=== PATIENT | female | born 1975 | race Caucasian/White ===

== ENCOUNTER 2016-07-22 09:58 | Emergency (ER) | payer OTHER ==
[~2016-07-22] VITALS: Ht 157.5 cm; Wt 90.9 kg
[~2016-07-22 09:58] MED LIST: AMIT10TA6 PO; IBUP800T28 PO; OMEP-113 PO
[2016-07-22 10:23] VITALS: BP 141/85; PULSE 69; RESP 20; O2SAT 97
--- NOTE | 2016-07-22 10:45 | ED.REPORT ---
HPI-Abd Pain F 40 and Over Date of Service Jul 22, 2016 ED Provider: Francis Kim MD 41 year old female with a history of mild erosive gastropathy and GERD presents to the ER accompanied by her son complaining of acute on chronic LLQ abdominal pain, worsening several days ago. Currently she rates the pain 6/10 in severity. She states that symptoms have been present for several years intermittently, and had resolved until several months ago. Symptoms are described as "constant morning sickness". Pain is exacerbated by eating. Associated symptoms include nausea, and diarrhea x5 today. Patient denies vomiting. Followed by Dr. Vitale, GI. Nursing Notes Stated Complaint: STOMACH PAINS Chief Complaint: Female Abdominal Pain Nursing Notes Reviewed: Yes ([employer] (formerly [employer]) not reconciled) Allergies: Coded Allergies: No Known Drug Allergies (Verified Allergy, Unknown, 03/08/14) Scheduled Amitriptyline (Amitriptyline) 10 Mg Tablet 10 MG PO HS Omeprazole Magnesium (Omeprazole) 20 Mg Capsule.dr 20 MG PO DAILY Scheduled PRN Ibuprofen (Ibuprofen) 800 Mg Tablet 800 MG PO QID PRN PRN For Pain oxyCODONE-Acetaminophen 5-325 mg (oxyCODONE-Acetaminophen 5-325 mg) 1 Each Tablet 1-2 TAB PO TID PRN PRN For Pain General Time Seen by MD: 10:40 Chief Complaint Abdominal pain (LLQ) Hx Obtained From: Patient Arrived By: Walk-in Sudden in Onset?: No Onset Occurred: More than a week ago... ("years") Symptom Duration: Intermittent Location: : Abdomen lower: LLQ Quality: Painful Severity: Current: Mild Severity: Maximum: Moderate Associated with: Reports: Diarrhea, Nausea, Denies: Vomiting Pertinent Negative: Pt denies other symptoms Similar Sx Previous: Yes Past Medical History Past Medical History Notes: ARNEL Vitale Past Medical History Reports: GERD Past Surgical History EGD and colonoscopy for diffuse multifocal abdominal pain by Dr. Vitale March 2014 with mild erosive gastropathy, otherwise normal EGD and colonoscopy Reports: Hysterectomy Smoking History Never Smoker Social History Alcohol Use: "Social" Drug Use: Denies drug use Other Social History: Good social support Ambulatory Status Independent Review of Systems Constitutional: Denies: Chills, Fever Respiratory: Denies: Non-productive cough, Shortness of breath Cardiovascular: Denies: Chest pain GI: Reports: Abdominal pain, Diarrhea, Nausea, Denies: Constipation, Hematemesis, Hematochezia, Vomiting Female: Denies: Dysuria, Flank pain Complete sys rev & neg: except as marked. Physical Exam Vital Signs Vital Signs (First) Date Time Temp Pulse Resp B/P Pulse Ox O2 Delivery O2 Flow Rate FiO2 07/22/16 10:23 36.8 69 20 141/85 97 Room Air Initial VS: Reviewed, Vital signs normal Head / Eyes: Atraumatic, Normocephalic ENT: Mucous membranes moist, Conjunctiva normal, No scleral icterus Neck: Supple, Non-tender, Full range of motion Extremities: Vascular intact, Neuro intact, No swelling, No tenderness Skin: Warm, Dry, No cyanosis Neurologic: Alert, Oriented, Nonfocal General/Constitutional: Awake, Alert, Well developed, Well nourished Appearance / Presentation: Positive: Obese Respiratory / Chest: Breath sounds NL, Breath sounds = bilat, No respiratory distress, No rales, No rhonchi, No wheezing, No stridor Cardiovascular: Heart rate NL, Regular rhythm, Heart sounds NL, Peripheral circulation NL Abdomen: No guarding, No rebound, No distention Tenderness/Guarding/Rebound: Positive: Tender LUQ... (Mild), Tender flank L Interpretation & Diagnostics Lab Results Interpretation Result Diagram: 07/22/16 1020 07/22/16 1020 Test 07/22/16 10:20 White Blood Count 5.7th/mm3 (3.8-10.1) Red Blood Count 4.72mil/mm3 (3.90-5.20) Hemoglobin 14.6g/dL (12.0-15.6) Hematocrit 41.2% (35.0-46.0) Mean Corpuscular Volume 87.3fL (81-100) Mean Corpuscular Hemoglobin 30.9pg (27.0-35.0) Mean Corpuscular Hemoglobin Concent 35.4% (32.0-37.0) Red Cell Distribution Width 12.9% (12.3-15.4) Platelet Count 240bil/L (150-400) Neutrophils (%) (Auto) 39.8% (40-74) Lymphocytes (%) (Auto) 51.5% (14-46) Monocytes (%) (Auto) 6.4% (4-12) Eosinophils (%) (Auto) 1.9% (0-5) Basophils (%) (Auto) 0.4% (0-3) Urine Color Yellow (YELLOW) Urine Appearance Clear (CLEAR,HAZY) Urine pH 6.5 (5.0-8.0) Urine Specific [place] 1.020 (1.003-1.035) Urine Protein Negativemg/dL (NEG,TRACE) Urine Glucose (UA) Negativemg/dL (NEGATIVE) Urine Ketones Negativemg/dL (NEGATIVE) Urine Occult Blood Small (NEGATIVE) Urine Nitrite Negative (NEGATIVE) Urine Bilirubin Negative (NEGATIVE) Urine Urobilinogen Normalmg/dL (NORMAL) Urine Leukocyte Esterase Negative (NEGATIVE) Urine RBC 0-2/hpf (0-2) Urine WBC 0-5/hpf (0-5) Urine Epithelial Cells Occasional/hpf (NONE-MOD) Urine Crystals None seen (NONE SEEN) Urine Bacteria Moderate/hpf (NONE-FEW) Urine Hyaline Casts None/lpf (NONE) Urine Granular Casts None seen (NONE SEEN) Urine Waxy Casts None seen (NONE SEEN) Urine Red Blood Cell Casts None seen (NONE SEEN) Urine White Blood Cell Casts None seen (NONE SEEN) Urine Mucus Present (None Seen) Urine Trichomonas None seen (NONE SEEN) Urine Yeast None (NONE SEEN) Urinalysis Comment None Urine Culture Reflexed Indicated Sodium Level 138mEq/L (134-144) Potassium Level 4.3mEq/L (3.5-5.2) Chloride Level 105mEq/L (97-108) Carbon Dioxide Level 23mmol/L (18-29) Blood Urea Nitrogen 11mg/dL (6-24) Creatinine 0.55mg/dL (0.57-1.00) Estimat Glomerular Filtration Rate 174mL/min (>59) Glucose Level 98mg/dL (60-99) Calcium Level 8.8mg/dL (8.5-10.1) Magnesium Level 1.8mg/dL (1.6-2.6) Total Bilirubin 0.4mg/dL (0.0-1.2) Aspartate Amino Transf (AST/SGOT) 15U/L (0-50) Alanine Aminotransferase (ALT/SGPT) 14U/L (0-32) Alkaline Phosphatase 38U/L (25-150) Total Protein 6.9g/dL (6.4-8.4) Albumin 4.1g/dL (3.4-5.0) Lipase 46U/L (13-60) Hold Ramires Top Tube Received (Received) Lab Results Interpretation: CBC normal CMP normal CT Abd / Pelvis Interpretation IMPRESSION: 1. No acute process; no explanation for left pete-abdominal pain. 2. Normal appendix. 3. No change in left adrenal nodule, consistent with benign etiology. 4. New indeterminate, ill-defined low-density focus within the right hepatic lobe, which could be further assessed with nonemergent liver protocol MRI, if clinically indicated. Dictated by: Liu Kruger M.D. on 07/22/2016 at 12:57 Approved by: Liu Kruger M.D. on 07/22/2016 at 12:57 Study type: Abdominal CT IV contrast, Abdom CT oral contrast Interpretation / Wet Read by: Interpret - Radiologist Re-Eval/Medical Decision Med Decision/Clinical Course This is a 41-year-old females had some chronic problems in recent months with left-sided abdominal pain, reports an acute worsening in the past few days. She is scheduled to undergo colonoscopy up in [place] later this month. She did have bouts of unexplained left-sided abdominal pain several years ago and underwent an extensive workup including EGD and colonoscopy here, without definitive pathology is identified-the symptoms seem to be doing much better, until recent worsening in recent months. Again however has been an acute on chronic change which is the past 2 days with terrible diarrhea, increasing cramps nausea-not a clearcut fever. She denies recent antibiotics, denies any blood in his stools, but she reports she states is really uncomfortable and so came to the emergency department. Exam she appears mildly uncomfortable, but not toxic or acutely ill. She does not appear severely dehydrated. Vitals are normal. She is tender slightly on the left side, without guarding or rebound. Was normal. CT scan with oral and IV contrast was negative for clear pathology. She continued to have some ongoing pain. She was unable to provide a stool sample for stool studies, which A and plan given the severity of the patient's description. The patient does not have overt risk factors for C. difficile. She does not demonstrate clinical or laboratory findings indicate high probability of a bacterial etiology to recommend empiric antibiotics at this stage. Plan at this point is discharged to home, continued outpatient follow-up. I recommend she contact her PCP to set up an outpatient stool study. I recommended keeping appointment with GI. I provided a few oxycodone, and ondansetron for symptomatic management in the meantime. Routine precautions reviewed. Patient is discharged in stable condition. Source of Hx: Old records Re-Evaluation/Progress : Time of Eval: 14:19 Re-Evaluation/Progress Note: Discussed lab and radiology results and updated patient on the plan of care. Differential Diagnosis: Positive: Acute abdominal pain, Negative: Abdominal aortic aneurysm, Appendicitis, Ectopic preg ruptured, Ectopic , Esophageal rupture, Gun shot wound abdomen, Intrauterine , Malignancy, Peritonitis, Stab wound abdomen Counseled Regarding: Diagnosis, Lab results Discharge & Departure Primary Impression: Abdominal Pain Generalized Additional Impression: Diarrhea Discharge Condition All VS Reviewed: Yes Condition: Stable Referrals: Blake Whitney MD (PCP) Scribe Attestation Portions of this note were transcribed by Levon Leach. I, Dr. Kim, personally performed the history, physical exam and medical decision-making; I reviewed and confirmed the accuracy of the information in the transcribed note. Signed by: Alexandr Toussaint, 07/22/2016 and *time*. copies to: Blake Whitney MD, Matthew F MD Jul 22, 2016 10:45 LEVON LEACH Jul 22, 2016 10:59
[2016-07-22 10:49] LABS: BASOPHILS % (AUTO) 0.4 % (0-3); EOSINOPHILS % (AUTO) 1.9 % (0-5); MONOCYTES % (AUTO) 6.4 % (4-12); Mean Corpuscular Hemoglobin 30.9 pg (27.0-35.0); Mean Corpuscular Volume 87.3 fL (81-100); NEUTROPHILS % (AUTO) 39.8 % (40-74); Platelet Count 240 bil/L (150-400)
[2016-07-22] MEDS ORDERED: Ondansetron 2 mg/mL 2 mL Inj IVPUSH ONE (11:00)
[2016-07-22] MEDS ORDERED: Iohexol 300 mg/mL 30 mL Inj PO ONE (11:00)
[2016-07-22] MEDS ORDERED: 0.9% Sodium Chloride 1,000 ML IV ONE (11:00)
[2016-07-22 11:13] LABS: Magnesium 1.8 mg/dL (1.6-2.6)
[2016-07-22 11:19] LABS: APPEARANCE,URINE CLEAR (CLEAR,HAZY); COLOR,URINE YELLOW (YELLOW); OCCULT BLOOD,URINE SMALL (NEGATIVE); PH,URINE 6.5 (5.0-8.0); UROBILINOGEN,URINE NORMAL (NORMAL)
[2016-07-22] MEDS: HYDROmorphone 0.5 mg/0.5 mL iSecure Syringe IVPUSH PRN ×2 (11:33→13:01)
--- NOTE | 2016-07-22 12:58 | DRSVH ---
PROCEDURE: CT ABDOMEN AND PELVIS WITH CONTRAST ([id number]) INDICATIONS: L abd pain TECHNIQUE: After the administration of oral and intravenous contrast, 5 mm thick sections acquired from the diap hragms to the symphysis. 5 mm thick coronal and sagittal reformats were performed. For radiation do se reduction, the following was used: automated exposure control, adjustment of mA and/or kV accordi ng to patient size. COMPARISON: [facility], CT, ABD/PELVIS W/CON (PN), 01/25/2014, 21:28. FINDINGS: Image quality: Excellent. ABDOMEN: Lung bases: Lung bases are clear. Heart size is normal. Solid organs: Liver and spleen are normal in size. Multiple small, less than 10 mm diameter hepatic hypodensities are present, as before, likely are pending cysts. Within the right hepatic lobe posteri chon, there is a new ill-defined 20 mm diameter low-density focus. Gallbladder is within normal limit s. Biliary system is non-dilated. Pancreas enhances normally. No right adrenal nodules. No signifi cant change in 24 mm diameter left adrenal nodule, with post contrast Hounsfield units of 31.4. Kidne ys are normal in size and enhancement, without hydronephrosis. Peritoneum and bowel: Stomach, small bowel, and colon loops are normal in caliber and wall thickness . No free fluid or air. Normal appendix. Nodes and vessels: No retroperitoneal or mesenteric adenopathy. Aorta and inferior vena cava are no rmal in caliber. Miscellaneous: No ventral hernias. PELVIS: Genitourinary: Bladder wall thickness is normal. Miscellaneous: No inguinal hernias or adenopathy. Bones: No suspicious bony lesions. No vertebral body compression fractures. IMPRESSION: 1. No acute process; no explanation for left epte-abdominal pain. 2. Normal appendix. 3. No change in left adrenal nodule, consistent with benign etiology. 4. New indeterminate, ill-defined low-density focus within the right hepatic lobe, which could be fur ther assessed with nonemergent liver protocol MRI, if clinically indicated. Dictated by: Liu Kruger M.D. on 07/22/2016 at 12:57 Approved by: Liu Kruger M.D. on 07/22/2016 at 12:57
[2016-07-22] MEDS ORDERED: oxyCODONE-Acetamin 5-325 mg Tablet PO ONE (14:25)
[2016-07-22] MEDS ORDERED: OXYC1TAB24 PO (14:37)
[2016-07-22] MEDS ORDERED: ONDA8TAB10 PO (14:48)
[2016-07-22 15:11] VITALS: BP 119/74; PULSE 57; RESP 16; O2SAT 97
== END 2016-07-22 15:13 ==
LOC: SED 09:58
DX: R10.84 Generalized abdominal pain (principal); R19.7 Diarrhea, unspecified; K21.9 Gastro-esophageal reflux disease without esophagitis; K31.89 Other diseases of stomach and duodenum; Z90.710 Acquired absence of both cervix and uterus
CPT/HCPCS: 36415; 74177; 80053; 81000; 83690; 83735; 85025; 87086; 87088; 96374; 96375; 96376; 99285; J1170; J2405; J7030; Q9967